=== PATIENT | female | born 1990 | race Caucasian/White ===

== ENCOUNTER → 2017-02-21 | Outpatient (CLI) | payer OTHER ==
[~2017-02-21] MED LIST: GABAPENTIN300 MG PO; PROZAC40 MG PO
--- NOTE | ~2017-02-21 | EKG ---
PATIENT: CAILIN REYES UNIT #: [id number] Ventricular Rate: 79 BPM Atrial Rate: 79 BPM P-R Interval: 150 ms QRS Duration: 78 ms Q-T Interval: 350 ms QTC Calculation(Bezet): 401 ms P [place]: 61 degrees Calculated R [place]: 77 degrees Calculated T [place]: 30 degrees Diagnosis Line: Normal sinus rhythm Diagnosis Line: Normal ECG Diagnosis Line: No previous ECGs available Diagnosis Line: Confirmed by VEENA SOL MD ([id number]) on Diagnosis Line: 02/22/2017 8:38:22 AM INTERPRETING MD: SWETA GOLDEN
== END | disposition home or self-care (01) ==
LOC: SEKG 15:41
DX: R00.2 Palpitations (principal)
CPT/HCPCS: 93005